=== PATIENT | male | born 1945 | race Caucasian/White ===

== ENCOUNTER 2018-02-12 11:25 | Emergency (ER) | payer OTHER ==
[~2018-02-12] VITALS: Ht 177.8 cm; Wt 85.9 kg
[2018-02-12 11:30] VITALS: Ht 177.8 cm; Wt 85.9 kg
[2018-02-12] MEDS ORDERED: ELIQUIS5 MG PO (11:31)
[2018-02-12] MEDS ORDERED: SYMBICORT 16010.2 GM (11:32)
[2018-02-12] MEDS ORDERED: SYMBICORT 16010.2 GM INH (11:32)
[2018-02-12] MEDS ORDERED: NOVOLIN R100 U/ML SQ (11:32)
[2018-02-12] MEDS ORDERED: TOPROL XL100 MG PO (11:33)
[2018-02-12] MEDS ORDERED: ZESTRIL10 MG PO (11:33)
[2018-02-12] MEDS ORDERED: STIOLTO RESPIMAT4 GM INH (11:34)
[2018-02-12] MEDS ORDERED: SENNA LAXATIVE8.6 MG PO (11:34)
[2018-02-12] MEDS ORDERED: CENTRUM SILVER1 TA1 PO (11:34)
[2018-02-12] MEDS ORDERED: NAC600 MG PO (11:35)
[2018-02-12 11:51] LABS: BASOPHILS 0.2 % (0-2); EOSINOPHILS 2.2 % (0-7); HEMATOCRIT 47.1 % (42.0-54.0); HEMOGLOBIN 15.8 g/dL (13.5-17.5); IMMATURE GRANULOCYTES 0.2 % (0-5); LYMPHOCYTES 18.6 % (15-50); MCHC 33.5 g/dL (31.0-37.0); MCV 86.4 fL (80.0-100.0); MEAN PLATELET VOLUME 10.2 fL (7.4-10.4); NEUTROPHILS 71.8 % (40-80); PLATELET COUNT 206 10x3/uL (130-400); RBC 5.45 10x6/uL (4.20-6.10); RDW 14.7 % (11.5-14.5)
[2018-02-12 12:21] LABS: ALBUMIN 3.4 g/dL (3.4-5.0); BILIRUBIN - TOTAL 0.3 mg/dL (0.2-1.3); CALCIUM 9.1 mg/dL (8.5-10.1); CARBON DIOXIDE 31.1 mmol/L (21.0-32.0); CREATININE - SERUM 1.1 mg/dL (0.6-1.3); POTASSIUM - SERUM 4.1 mmol/L (3.5-5.1); PROTEIN - SERUM 7.2 g/dL (6.4-8.2)
[2018-02-12 12:22] LABS: MAGNESIUM - SERUM 2.1 mg/dL (1.8-2.4); TROPONIN-I 0.059 ng/mL (0.000-0.060)
[2018-02-12 19:09] VITALS: BP 152/90
== END 2018-02-12 19:13 | disposition other institution (70) ==
LOC: D.ER 11:25
PROVIDERS: Family Medicine
DX: T82.897A Other specified complication of cardiac prosthetic devices, implants and grafts, initial encounter (principal)

== ENCOUNTER 2018-04-02 14:06 | Emergency (ER) | payer OTHER ==
[~2018-04-02] VITALS: Ht 177.8 cm; Wt 90.0 kg
[~2018-04-02 14:06] MED LIST: CENTRUM SILVER1 TA1 PO; ELIQUIS5 MG PO; NAC600 MG PO; NOVOLIN R100 U/ML SQ; SENNA LAXATIVE8.6 MG PO; STIOLTO RESPIMAT4 GM INH; SYMBICORT 16010.2 GM; SYMBICORT 16010.2 GM INH; TOPROL XL100 MG PO; ZESTRIL10 MG PO
[2018-04-02 14:11] VITALS: Ht 177.8 cm; Wt 90.0 kg
[2018-04-02] MEDS ORDERED: PACERONE100 MG PO (14:18)
[2018-04-02 14:37] LABS: BASOPHILS 0.1 % (0-2); EOSINOPHILS 1.8 % (0-7); IMMATURE GRANULOCYTES 0.2 % (0-5); LYMPHOCYTES 18.4 % (15-50); MCH 28.5 pg (26.0-34.0); MCHC 31.8 g/dL (31.0-37.0); MCV 89.6 fL (80.0-100.0); MONOCYTES 8.4 % (2-11); NEUTROPHILS 71.1 % (40-80); PLATELET COUNT 240 10x3/uL (130-400); RBC 4.91 10x6/uL (4.20-6.10); RDW 15.6 % (11.5-14.5); WBC 10.9 10x3/uL (4.8-10.8)
[2018-04-02 14:52] LABS: ALBUMIN 3.4 g/dL (3.4-5.0); ANION GAP 8.2 mmol/L (8-16); BILIRUBIN - TOTAL 0.52 mg/dL (0.2-1.3); CALCIUM 9.1 mg/dL (8.5-10.1); CARBON DIOXIDE 36.1 mmol/L (21.0-32.0); CREATININE - SERUM 1.4 mg/dL (0.6-1.3); POTASSIUM - SERUM 4.3 mmol/L (3.5-5.1); PROTEIN - SERUM 7.3 g/dL (6.4-8.2)
[2018-04-02] MEDS ORDERED: LASIX40 MG PO (18:53)
[2018-04-02 19:13] VITALS: BP 130/95
== END 2018-04-02 19:10 | disposition home or self-care (01) ==
LOC: D.ER 14:06
PROVIDERS: Family Medicine
DX: R60.0 Localized edema (principal); E11.9 Type 2 diabetes mellitus without complications; I10 Essential (primary) hypertension; Z95.0 Presence of cardiac pacemaker; J44.9 Chronic obstructive pulmonary disease, unspecified